=== PATIENT | female | born 1990 | race Caucasian/White ===

== ENCOUNTER 2019-03-13 21:23 | Emergency (ER) | payer OTHER ==
[~2019-03-13] VITALS: Ht 170.2 cm; Wt 63.5 kg
[~2019-03-13 21:23] MED LIST: AMOX500 PO; AMOX50SU PO; CETI10 PO; CODACE30 PO; CODACEE120 PO; CYCL10 PO; DIAZ5 PO; DIPH50 PO; DOCU100 PO; DOXY100 PO; DOXY100T53 PO; HYDACE5 PO; HYDACE7.5L PO; IBUP800 PO; MAALOX PO; MEDICAL MARIJUANA; MEDR150I IM; METR500 PO; NAPR500 PO; ONDA4ODT PO; OXYACE5T PO; PRED10 PO; PROACE100 PO; PROM25 PO; RANI150 PO; ROXICODONE5 MG PO; RXCODACET PO; RXPROACE PO; SIME80CH PO; TRAM50 PO; UNKNOWN ANTIBIOTIC; VENL37.5 PO; VENL75; [UNRECOGNIZED DRUG - CODE]; [UNRECOGNIZED DRUG - OTHER] PO
[2019-03-13] MEDS ORDERED: Percocet 5-3251 EACH PO (22:29)
[2019-03-13] MEDS ORDERED: ONDA4ODT MM (22:29)
[2019-03-14] MEDS ORDERED: Roxicodone5 MG PO (10:49)
== END 2019-03-13 22:50 | disposition home or self-care (01) ==
LOC: ER 21:23
DX: S59.292A Other physeal fracture of lower end of radius, left arm, initial encounter for closed fracture (principal); W01.198A Fall on same level from slipping, tripping and stumbling with subsequent striking against other object, initial encounter; Z88.8 Allergy status to other drugs, medicaments and biological substances; Z88.5 Allergy status to narcotic agent
CPT/HCPCS: 25605; 73100; 73110; 96374-59; 96375-59; 99152; 99283-25; A9270-GY; J2405; J2704; J3010; J7030

== ENCOUNTER 2019-03-18 01:51 | Emergency (ER) | payer OTHER ==
[~2019-03-18] VITALS: Ht 170.2 cm; Wt 63.5 kg
[~2019-03-18 01:51] MED LIST changes: +ONDA4ODT MM; +Percocet 5-3251 EACH PO; +Roxicodone5 MG PO
== END 2019-03-18 05:30 | disposition home or self-care (01) ==
LOC: ER 01:51
DX: Z46.89 Encounter for fitting and adjustment of other specified devices (principal); Z88.8 Allergy status to other drugs, medicaments and biological substances; Z88.5 Allergy status to narcotic agent
CPT/HCPCS: 99282; A9270-GY

== ENCOUNTER 2019-03-19 12:14 | Day surgery (SDC) | payer OTHER ==
[~2019-03-19] VITALS: Ht 170.2 cm; Wt 67.0 kg
--- NOTE | 2019-03-19 13:42 | NUR ---
1330 Ambulatory in Day Surgery History, Chart, Medications and Allergies reviewed before start of procedure.Lungs clear T/O to Auscultation.Lungs clear T/O to Auscultation. Patient confirms NPO status and agrees with scheduled surgery. Pre-Op teaching done. Pt verbalizes understanding. History, Chart, Medications and Allergies reviewed before start of procedure.
--- NOTE | 2019-03-19 18:51 | NUR ---
Patient up to Ambulate independently. Gait steady. Discharge instructions reviewed with patient. Patient verbalizes understanding. Copy given to patient to take home. Patient States Post-Procedure ride home has been arranged. Discharged via wheelchair to private car for ride home. SCRIPT FOR PAIN MED SENT WITH PT. PT INSTRUCTED TO DROP SCRIPT OFF AT PHARMACY ON WAY HOME SO THAT SHE WILL HAVE MEDICATIONS FOR THE WEEKEND. ICE/ELEVATE. ICE PACK SENT WITH PT. PT'S ARM IN SLING AND INSTRUCTED ON NON-WT BEARING/USE STATUS. PT MADE MULTIPLE STATEMENTS REGARDING PAIN CONTROL AND PERCEPTION THAT STAFF WERE NOT PROVIDING ADEQUATE PAIN RELIEF. PT STATED THAT "DR. CHE NEVER LET ME SUFFER LIKE THIS", PT'S TOTAL MEDICATIONS FOR PAIN WHILE AT [facility] REVIEWED WITH PT INCLUDING 10MG PO MS CONTIN, 425MCG IV FENT, 30MG IV TORADOL, 5MG OXYCODONE IR. PT ALSO REQUESTED THAT SHE WISHED THE ANESTHESIOLOGIST WOULD ORDER MORE VERSED FOR HER RIDE HOME.
== END 2019-03-19 22:46 | disposition home or self-care (01) ==
LOC: ORSCMMR 12:14 → ORD 12:30 → ORSCMMR 22:46
PROVIDERS: Orthopaedic Surgery
PROC: 0PSJ04Z Reposition Left Radius with Internal Fixation Device, Open Approach (ICD-10-PCS; principal; 2019-03-19 15:15)
DX: S52.552A Other extraarticular fracture of lower end of left radius, initial encounter for closed fracture (principal)
CPT/HCPCS: C1713; J0690; J1100; J1885; J2250; J2405; J2550; J2704; J3010; J7120

== ENCOUNTER 2019-10-12 11:51 | Day surgery (SDC) | payer OTHER ==
[~2019-10-12] VITALS: Ht 170.2 cm; Wt 22.4 kg
--- NOTE | 2019-10-12 14:48 | NUR ---
10/12/19 1448 Yari Pate 1 MG OF EPI ADDED INTO EACH OF THE FIRST THREE BAGS OF IRRIGATION.
--- NOTE | 2019-10-12 16:26 | NUR ---
10/12/19 1626 Shona Blackburn PT STATES UNABLE TO TAKE PRESCRIBED PAIN MEDS. DR. VERGARA CALLED, NO ANSWER. SPOKE TO OFFICE, NEW PRESCRIPTION IS WAITING AT DR. VERGARA'S OFFICE.
== END 2019-10-12 16:30 | disposition home or self-care (01) ==
LOC: ORSCSDS 11:51
PROVIDERS: Orthopaedic Surgery
PROC: 0SBD4ZZ Excision of Left Knee Joint, Percutaneous Endoscopic Approach (ICD-10-PCS; principal; 2019-10-12 13:15)
PROC: 0MQP4ZZ Repair Left Knee Bursa and Ligament, Percutaneous Endoscopic Approach (ICD-10-PCS; principal; 2019-10-12 13:15)
DX: S83.512A Sprain of anterior cruciate ligament of left knee, initial encounter (principal); S83.282A Other tear of lateral meniscus, current injury, left knee, initial encounter
CPT/HCPCS: C1713; J0171; J0690; J1100; J1885; J2250; J2405; J2704; J2795; J3010; J7120

== ENCOUNTER 2020-03-28 06:36 | Emergency (ER) | payer OTHER ==
[~2020-03-28] VITALS: Ht 170.2 cm; Wt 59.9 kg
[2020-03-28] MEDS ORDERED: OLAN5 PO (07:15)
[2020-03-28] MEDS ORDERED: CODACE30 PO (07:56)
== END 2020-03-28 08:17 | disposition home or self-care (01) ==
LOC: ER 06:36
DX: S60.211A Contusion of right wrist, initial encounter (principal); F32.9 Major depressive disorder, single episode, unspecified; Z88.8 Allergy status to other drugs, medicaments and biological substances; Z88.5 Allergy status to narcotic agent; Z79.899 Other long term (current) drug therapy; W22.8XXA Striking against or struck by other objects, initial encounter
CPT/HCPCS: 73110; 99283-25

== ENCOUNTER 2020-04-04 12:14 | Emergency (ER) | payer OTHER ==
[~2020-04-04] VITALS: Ht 170.2 cm; Wt 60.3 kg
[~2020-04-04 12:14] MED LIST changes: +OLAN5 PO
[2020-04-04 13:15] LABS: BASOPHILS ABSOLUTE AUTO 0.05 K/mm3 (0.00-0.23); BASOPHILS PERCENT AUTO 1 % (0-2); EOSINOPHILS ABSOLUTE AUTO 0.03 K/mm3 (0.00-0.68); EOSINOPHILS PERCENT AUTO 0 % (0-6); Hematocrit 36.4 % (33.0-51.0); Hemoglobin 12.1 g/dL (11.5-16.0); IMMATURE GRAN ABSOLUTE AUTO 0.01 K/mm3 (0.00-0.10); IMMATURE GRAN PERCENT AUTO 0 % (0-1); LYMPHOCYTES ABSOLUTE AUTO 2.33 K/mm3 (0.84-5.20); LYMPHOCYTES PERCENT AUTO 34 % (21-46); MONOCYTES ABSOLUTE AUTO 0.46 K/mm3 (0.16-1.47); MONOCYTES PERCENT AUTO 7 % (4-13); Mean Corpuscular HGB 32.4 pg (26.0-34.0); Mean Corpuscular HGB Conc 33.2 g/dL (31.5-36.5); Mean Corpuscular Volume 97 fL (80-100); Mean Platelet Volume 10.4 fL (9.1-12.4); NEUTROPHILS ABSOLUTE AUTO 3.99 K/mm3 (1.96-9.15); NEUTROPHILS PERCENT AUTO 58 % (41-73); Platelet Count 334 K/mm3 (150-400); RDW Coefficient Variation 13.1 % (11.7-14.2); RDW Standard Deviation 46.6 fL (35.1-46.3); Red Blood Cell Count 3.74 M/mm3 (3.80-5.20); White Blood Cell Count 6.87 K/mm3 (4.00-11.30)
[2020-04-04 13:36] LABS: Anion Gap 11 mmol/L (6-16); Blood Urea Nitrogen 12 mg/dL (8-24); Bun/Creatinine Ratio 14.2 (12.0-20.0); CO2, Blood 19 mmol/L (21-32); Calcium, Blood 9.2 mg/dL (8.5-10.1); Chloride, Blood 107 mmol/L (98-108); Creatinine, Blood 0.84 mg/dL (0.40-1.00); Glomerular Filtration Rate >60 (60-); Glucose, Blood 143 mg/dL (70-99); Potassium, Blood 3.2 mmol/L (3.5-5.5); Sodium, Blood 137 mmol/L (136-145)
== END 2020-04-04 15:50 | disposition home or self-care (01) ==
LOC: ER 12:14
PROVIDERS: Physician Assistant
DX: S05.12XA Contusion of eyeball and orbital tissues, left eye, initial encounter (principal); W19.XXXA Unspecified fall, initial encounter; Z88.5 Allergy status to narcotic agent; Z88.8 Allergy status to other drugs, medicaments and biological substances
CPT/HCPCS: 36415; 70450; 80048; 85025; 96374; 99284-25; A9270-GY; J2405

== ENCOUNTER 2020-10-30 07:31 | Day surgery (SDC) | payer OTHER ==
[~2020-10-30] VITALS: Ht 170.2 cm; Wt 65.1 kg
[2020-10-30] MEDS ORDERED: CLON1 PO (08:28)
[2020-10-30] MEDS ORDERED: PROM25 PO (08:28)
[2020-10-30] MEDS ORDERED: CYCL10 PO (08:29)
--- NOTE | 2020-10-30 09:51 | NUR ---
10/30/20 0951 Rosa Renee BUPIVACAINE 0.5% 30MLS MIXED WITH EPI 0.15 MLS TO MAKE BUPIVACAINE 0.5% 1:200,[address] MILLER. TOATL 10 MLS INJECTED INTO OPSITE.
== END 2020-10-30 10:35 | disposition home or self-care (01) ==
LOC: ORSCSDS 07:31
PROVIDERS: Orthopaedic Surgery
PROC: 0PPJ04Z Removal of Internal Fixation Device from Left Radius, Open Approach (ICD-10-PCS; principal; 2020-10-30 08:45)
DX: T84.84XA Pain due to internal orthopedic prosthetic devices, implants and grafts, initial encounter (principal); F41.9 Anxiety disorder, unspecified; F43.10 Post-traumatic stress disorder, unspecified; I73.00 Raynaud's syndrome without gangrene; Z79.899 Other long term (current) drug therapy
CPT/HCPCS: A9270; J0171; J0690; J1100; J1885; J2250; J2405; J2704; J2765; J3010; J7120

== ENCOUNTER → 2021-02-05 | Outpatient (CLI) | payer OTHER ==
[~2021-02-05] MED LIST changes: +CLON1 PO
== END | disposition home or self-care (01) ==
LOC: PLD 08:04 → LAB SHORT 08:04
DX: S92.411K Displaced fracture of proximal phalanx of right great toe, subsequent encounter for fracture with nonunion (principal)
CPT/HCPCS: 88305; 88311

== ENCOUNTER 2021-11-25 07:19 | Emergency (ER) | payer OTHER ==
[~2021-11-25] VITALS: Ht 170.2 cm; Wt 63.5 kg
[2021-11-25 08:03] LABS: Source, Urine Clean Catch
[2021-11-25 08:07] LABS: BASOPHILS ABSOLUTE AUTO 0.08 K/mm3 (0.00-0.23); BASOPHILS PERCENT AUTO 1 % (0-2); EOSINOPHILS ABSOLUTE AUTO 0.06 K/mm3 (0.00-0.68); EOSINOPHILS PERCENT AUTO 1 % (0-6); Hematocrit 38.5 % (33.0-51.0); Hemoglobin 12.9 g/dL (11.5-16.0); IMMATURE GRAN ABSOLUTE AUTO 0.01 K/mm3 (0.00-0.10); IMMATURE GRAN PERCENT AUTO 0 % (0-1); LYMPHOCYTES ABSOLUTE AUTO 1.79 K/mm3 (0.84-5.20); LYMPHOCYTES PERCENT AUTO 28 % (21-46); MONOCYTES ABSOLUTE AUTO 0.43 K/mm3 (0.16-1.47); MONOCYTES PERCENT AUTO 7 % (4-13); Mean Corpuscular HGB 33.5 pg (26.0-34.0); Mean Corpuscular HGB Conc 33.5 g/dL (31.5-36.5); Mean Corpuscular Volume 100 fL (80-100); NEUTROPHILS PERCENT AUTO 63 % (41-73); Platelet Count 374 K/mm3 (150-400); RDW Coefficient Variation 13.2 % (11.7-14.2); RDW Standard Deviation 48.8 fL (35.1-46.3); Red Blood Cell Count 3.85 M/mm3 (3.80-5.20); White Blood Cell Count 6.37 K/mm3 (4.00-11.30)
[2021-11-25 08:13] LABS: Bilirubin, Urine Neg (Neg); Blood, Urine Neg (Neg); Glucose Qualitative, Urine Neg (Neg); Ketones, Urine Neg (Neg); Leukocyte Esterase, Urine Neg (Neg); Nitrite, Urine Neg (Neg); Protein, Urine Neg (Neg); Urobilinogen, Urine NORM (Normal)
[2021-11-25 08:22] LABS: Appearance, Urine Clear (Clear); Color, Urine Yellow (P-Yellow)
[2021-11-25 08:41] LABS: Alanine Aminotransfer (ALT/SGP 23 U/L (12-78); Albumin, Blood 4.2 g/dL (3.4-5.0); Albumin/Globulin Ratio 1.4 (0.8-1.8); Alk Phos 48 U/L (50-136); Anion Gap 8 mmol/L (6-16); Aspartate Aminotrans (AST/SGOT 21 U/L (12-37); Bilirubin, Total 0.3 mg/dL (0.1-1.0); Blood Urea Nitrogen 11 mg/dL (8-24); Bun/Creatinine Ratio 14.7 (12.0-20.0); CO2, Blood 23 mmol/L (21-32); Calcium, Blood 8.5 mg/dL (8.5-10.1); Chloride, Blood 108 mmol/L (98-108); Creatinine, Blood 0.75 mg/dL (0.40-1.00); Glomerular Filtration Rate >60 (60-); Glucose, Blood 86 mg/dL (70-99); Potassium, Blood 3.7 mmol/L (3.5-5.5); Sodium, Blood 139 mmol/L (136-145); Total Protein, Blood 7.2 g/dL (6.4-8.2)
== END 2021-11-25 11:43 | disposition home or self-care (01) ==
LOC: ER 07:19
PROVIDERS: Student in an Organized Health Care Education/Training Program
DX: R10.31 Right lower quadrant pain (principal); R11.2 Nausea with vomiting, unspecified; F12.90 Cannabis use, unspecified, uncomplicated
CPT/HCPCS: 36415; 76857; 80053; 81003; 85025; 96374; 96375; 99284-25; J1630; J1885; J2405; J2550

== ENCOUNTER 2022-03-20 13:09 | Emergency (ER) | payer OTHER ==
[~2022-03-20] VITALS: Ht 170.2 cm; Wt 61.2 kg
[2022-03-20 13:45] LABS: BASOPHILS ABSOLUTE AUTO 0.06 K/mm3 (0.00-0.23); BASOPHILS PERCENT AUTO 1 % (0-2); EOSINOPHILS ABSOLUTE AUTO 0.06 K/mm3 (0.00-0.68); EOSINOPHILS PERCENT AUTO 1 % (0-6); Hematocrit 41.8 % (33.0-51.0); Hemoglobin 13.7 g/dL (11.5-16.0); IMMATURE GRAN ABSOLUTE AUTO 0.03 K/mm3 (0.00-0.10); IMMATURE GRAN PERCENT AUTO 0 % (0-1); LYMPHOCYTES ABSOLUTE AUTO 1.62 K/mm3 (0.84-5.20); LYMPHOCYTES PERCENT AUTO 18 % (21-46); MONOCYTES ABSOLUTE AUTO 0.29 K/mm3 (0.16-1.47); MONOCYTES PERCENT AUTO 3 % (4-13); Mean Corpuscular HGB 32.9 pg (26.0-34.0); Mean Corpuscular HGB Conc 32.8 g/dL (31.5-36.5); Mean Corpuscular Volume 101 fL (80-100); Mean Platelet Volume 9.6 fL (9.1-12.4); NEUTROPHILS ABSOLUTE AUTO 7.01 K/mm3 (1.96-9.15); NEUTROPHILS PERCENT AUTO 77 % (41-73); Platelet Count 278 K/mm3 (150-400); RDW Coefficient Variation 12.7 % (11.7-14.2); RDW Standard Deviation 47.6 fL (35.1-46.3); Red Blood Cell Count 4.16 M/mm3 (3.80-5.20); White Blood Cell Count 9.07 K/mm3 (4.00-11.30)
[2022-03-20 14:06] LABS: Magnesium, Blood 2.4 mg/dL (1.6-2.4)
[2022-03-20 14:07] LABS: Albumin, Blood 4.6 g/dL (3.4-5.0); Albumin/Globulin Ratio 1.4 (0.8-1.8); Bilirubin, Total 0.5 mg/dL (0.1-1.0); Bun/Creatinine Ratio 25.5 (12.0-20.0); Calcium, Blood 8.8 mg/dL (8.5-10.1); Creatinine, Blood 0.67 mg/dL (0.40-1.00); Globulin, Blood 3.2 g/dL (2.2-4.0); Potassium, Blood 3.6 mmol/L (3.5-5.5); Total Protein, Blood 7.8 g/dL (6.4-8.2)
== END 2022-03-20 15:59 | disposition home or self-care (01) ==
LOC: ER 13:09
PROVIDERS: Student in an Organized Health Care Education/Training Program
DX: R55 Syncope and collapse (principal); R51.9 Headache, unspecified; Z88.6 Allergy status to analgesic agent; Z88.5 Allergy status to narcotic agent; Z88.8 Allergy status to other drugs, medicaments and biological substances; Z79.899 Other long term (current) drug therapy
CPT/HCPCS: 70450; 80053; 83735; 85025; 93005; 93010; 99284-25

== ENCOUNTER 2022-06-12 06:07 | Day surgery (SDC) | payer OTHER ==
[~2022-06-12] VITALS: Ht 170.2 cm; Wt 63.6 kg
[2022-06-12] MEDS ORDERED: LORA1 PO (06:57)
[2022-06-12] MEDS ORDERED: CLON.5 (06:58)
--- NOTE | 2022-06-12 08:09 | NUR ---
3 IV ATTMEPTS PRIOR TO RFA IV
[2022-06-12 08:18] LABS: Bun/Creatinine Ratio 25.1 (12.0-20.0); Calcium, Blood 8.2 mg/dL (8.5-10.1); Creatinine, Blood 0.48 mg/dL (0.40-1.00); Potassium, Blood 3.9 mmol/L (3.5-5.5)
[2022-06-12 08:21] LABS: Hematocrit 39.4 % (33.0-51.0); Mean Corpuscular HGB 33.4 pg (26.0-34.0); Mean Corpuscular Volume 101 fL (80-100); Mean Platelet Volume 9.9 fL (9.1-12.4); Platelet Count 283 K/mm3 (150-400); RDW Coefficient Variation 13.2 % (11.7-14.2); RDW Standard Deviation 49.9 fL (35.1-46.3); Red Blood Cell Count 3.89 M/mm3 (3.80-5.20); White Blood Cell Count 8.79 K/mm3 (4.00-11.30)
--- NOTE | 2022-06-12 08:45 | NUR ---
Ambulatory in Day Surgery. PT HYPERVENTALATING. STATES SHE HAS "PTSD ANXIETY." HOLDING BLANKET. SO AT HER SIDE. History, Chart, Medications and Allergies reviewed before start of procedure.Lungs clear T/O to Auscultation. Patient confirms NPO status and agrees with scheduled surgery. Pre-Op teaching done. Pt verbalizes understanding. Patient States Post-Procedure ride home has been arranged.
--- NOTE | 2022-06-12 08:58 | NUR ---
0827: DR. FERNANDEZ DISCUSSING POC ON PHONE WITH PT. PT EXTREMELY ANXIOUS, HYPERVENTALATING ASKING FOR ANTI-ANXIETY MEDS. 0840: DR. FERNANDEZ HERE TO SEE PT.
[2022-06-12 09:02] LABS: BASOPHILS ABSOLUTE MAN 0.35 K/mm3 (0.00-0.23); BASOPHILS PERCENT MAN 4 % (0-2); EOSINOPHILS ABSOLUTE MAN 0.17 K/mm3 (0.00-0.68); EOSINOPHILS PERCENT MAN 2 % (0-6); LYMPHOCYTES ABSOLUTE MAN 2.19 K/mm3 (0.84-5.20); LYMPHOCYTES PERCENT MAN 25 % (21-46); MONOCYTES ABSOLUTE MAN 0.35 K/mm3 (0.16-1.47); MONOCYTES PERCENT MAN 4 % (4-13); NEUTROPHILS ABSOLUTE MAN 5.71 K/mm3 (1.96-9.15); SEG NEUTROPHILS PERCENT MAN 65 % (41-73); TOTAL CELLS COUNTED 100
--- NOTE | 2022-06-12 09:44 | NUR ---
06/12/22 0944 Shona Sprague NO PREOP ANTIBIOTICS ORDERED PER .
--- NOTE | 2022-06-12 12:11 | NUR ---
Patient up to Ambulate independently. Gait steady. Discharge instructions reviewed with patient. Patient verbalizes understanding. Copy given to patient to take home. Dressing to procedure site clean, dry, intact with no visible drainage, swelling, erythema or bruising noted. Discharged via wheelchair to private car for ride home WITH PARTNER.
== END 2022-06-12 12:12 | disposition home or self-care (01) ==
LOC: ORSCMMR 06:07 → ORD 09:45 → ORSCMMR 12:12
PROVIDERS: Obstetrics & Gynecology
PROC: 0DNU4ZZ Release Omentum, Percutaneous Endoscopic Approach (ICD-10-PCS; principal; 2022-06-12 09:45)
DX: R10.2 Pelvic and perineal pain (principal); K66.0 Peritoneal adhesions (postprocedural) (postinfection); I73.00 Raynaud's syndrome without gangrene; Z79.899 Other long term (current) drug therapy
CPT/HCPCS: 80048; 85007; 85027; 86850; 86900; 86901; A9270; J1100; J1170; J1885; J2250; J2405; J2704; J2765; J2795; J3010; J7120

== ENCOUNTER 2023-04-12 15:19 | Emergency (ER) | payer OTHER ==
[~2023-04-12] VITALS: Ht 170.2 cm; Wt 64.9 kg
[~2023-04-12 15:19] MED LIST changes: +CLON.5; +LORA1 PO
[2023-04-12 15:30] VITALS: BP 158/104
[2023-04-12] MEDS ORDERED: Percocet 5-3251 EACH PO ×2 (16:48→17:31)
== END 2023-04-12 17:14 | disposition home or self-care (01) ==
LOC: ER 15:19
DX: R51.9 Headache, unspecified (principal); M25.512 Pain in left shoulder; V49.40XA Driver injured in collision with unspecified motor vehicles in traffic accident, initial encounter; Z88.5 Allergy status to narcotic agent; Z88.8 Allergy status to other drugs, medicaments and biological substances; Z79.899 Other long term (current) drug therapy
CPT/HCPCS: 72040; 99284-25; A9270; L0160

== ENCOUNTER → 2023-08-26 | Outpatient (CLI) | payer OTHER ==
[2023-08-26 18:03] LABS: Adenovirus F 40/41 Not Detected (NOT DETECT); Astrovirus Not Detected (NOT DETECT); Campylobacter Sp Not Detected (NOT DETECT); Cryptosporidium Not Detected (NOT DETECT); Cyclospora Cayetanensis Not Detected (NOT DETECT); E. Coli O157 Not Detected (NOT DETECT); Entamoeba Histolytica Not Detected (NOT DETECT); Enteroaggregative E. coli-EAEC Not Detected (NOT DETECT); Enteropathogenic E. coli-EPEC Not Detected (NOT DETECT); Enterotoxigenic E. coli-ETEC Not Detected (NOT DETECT); Giardia Lamblia Not Detected (NOT DETECT); Norovirus GI/GII Not Detected (NOT DETECT); Plesiomonas Shigelloides Not Detected (NOT DETECT); Rotavirus A Not Detected (NOT DETECT); Salmonella Sp Detected (NOT DETECT); Shiga Toxin-prod E. coli-STEC Not Detected (NOT DETECT); Shigella/Enteroin E. coli-EIEC Not Detected (NOT DETECT); Vibrio Cholerae Not Detected (NOT DETECT); Vibrio Sp Not Detected (NOT DETECT); Yersinia Enterocolitica Not Detected (NOT DETECT)
[2023-08-26 18:04] LABS: Sapovirus Not Detected (NOT DETECT)
== END | disposition home or self-care (01) ==
LOC: LAB 09:05 → LAB SHORT 09:05 → LAB FUT 08-25 14:40
PROVIDERS: Family Medicine
DX: A04.4 Other intestinal Escherichia coli infections (principal)
CPT/HCPCS: 87507